=== PATIENT | male | born 1965 | race Caucasian/White ===

== ENCOUNTER 2022-03-22 20:54 | Inpatient (IN) ==
[2022-03-22 22:00] LABS: Basophils # (auto) 0.06 K/uL (0-0.2); Basophils % (auto) 0.3 %; Eosinophils # (auto) 0.02 K/uL (0-0.50); Eosinophils % (auto) 0.1 %; Hematocrit (blood only) 57.6 % (40.1-51.0); Hemoglobin 20.1 g/dl (14.0-18.0); Immature Granulocytes # (auto) 0.06 K/uL (0.00-0.02); Immature Granulocytes % (auto) 0.3 %; Lymphocytes # (auto) 2.38 K/uL (1.2-3.4); Lymphocytes % (auto) 11.5 %; Mean Corpuscular Hemoglobin 30.8 pg (25.0-34.0); Mean Corpuscular Hgb Conc 34.9 g/dL (32.0-36.0); Mean Corpuscular Volume 88.3 fL (80.0-100.0); Mean Platelet Volume 9.5 fL (9.4-12.4); Monocytes # (auto) 1.11 K/uL (0.24-0.82); Monocytes % (auto) 5.4 %; Neutrophils % (auto) 82.4 %; Platelet Count 315 K/uL (130-400); RDW Coefficient of Variation 12.8 % (11.5-14.5); Red Blood Count 6.52 M/uL (4.63-6.08); White Blood Count 20.63 K/ul (4.8-10.8)
[2022-03-22 22:17] LABS: Albumin Globulin Ratio 1.4 (0.9-2); Albumin Level 4.5 gm/dl (3.4-5.0); BUN Creatinine Ratio 24.4 (10-20); Bilirubin,Total 0.5 mg/dl (0.2-1.0); Calcium 9.3 mg/dl (8.5-10.1); Creatinine Clr Calc Pharmacy 90.5 ml/min; Est GFR (Non-African American) 94.9 ml/min; Globulin 3.3 gm/dl (2.5-4.0); Potassium 4.2 mmol/L (3.5-5.1); Total Protein 7.8 gm/dl (6.0-8.3)
[2022-03-22] MEDS ORDERED: SODIUM CHLORIDE 0.9% 1000ML 1,000 ML IV ONE (22:21)
--- NOTE | 2022-03-22 22:58 | Emergency Department Note ---
Impression & Plan Generalized abdominal pain, Leukocytosis, Elevated troponin, Abnormal ECG ED Provider Note INFORMANT: Patient ED PROVIDER(S): Shaq Stephens MD CHIEF COMPLAINT: Abdominal pain PLAN: Disposition: Admitted Condition: Good Outpatient prescription management: none Referral: None MEDICAL DECISION MAKING: Patient presented because of abdominal pain. He also had diarrhea. He was concerned with his history of perforation. He had no peritoneal findings on examination. His ECG was abnormal. He had a repolarization abnormality however when compared to prior there was worsening in the inferior leads. He was hydrated. Patient declined analgesia initially. He was sent for CT imaging. Patient was found to have a significant leukocytosis as well as elevated hemoglobin on CBC. Chemistry panel was unremarkable. Patient was found to have an elevated troponin. In light of his symptoms and abnormal ECG this was concerning. He was significantly hypertensive. The patient was given aspirin, Nitropaste, and a dose of IV Lopressor. CT imaging is consistent with diarrheal illness. It appears that the diarrheal illness may have triggered a cascade of events. Stool studies were ordered. Patient did note that he has been drinking from [place]. Further management in the hospital will be necessary. Consultation was made with the [facility] hospitalist service. Patient was evaluated and managed Triage Nursing notes reviewed and agree them. Vital Signs: reviewed and remarkable for hypertension Differential diagnosis: Appendicitis, testicular torsion, infections, diverticulitis, UTI, obstruction, mesenteric ischemia, aortic pathology, inflammatory bowel disease, renal colic, PUD, pancreatitis, biliary pathology, hernia, volvulus, constipation, as well as other pathologies. Diagnostics interpreted by me: ECG: Twelve-lead ECG reveals a normal sinus rhythm at 84 bpm. There is bilateral atrial margin. LVH present. Repolarization abnormality present. Inferior T wave inversions. When compared to his prior study obtained in the [employer] system the inferior changes are new. Cardiac Monitoring: Cardiac monitoring ordered by me: The patient was placed on continuous cardiac monitoring and observed. It revealed a normal sinus rhythm at 72 beats per minute without ectopy or evidence of dysrhythmia. Imaging studies: CT scan as noted above. HPI: The patient is a 57year old male who presents to the Emergency Room with complaints of generalized abdominal pain. This started yesterday and is worsening. The patient also notes the following associated symptoms, some mild diarrhea and transient nausea. The patient has found no relieving factors. C urrent pain is rated as 7/10. Patient has a history of bowel perforation. States does not feel as severe. Pt denies LOC, headache, fevers, chills, diaphoresis, visual changes, neck pain, chest pain, breathing difficulties, 5 back pain, melena, hematochezia, urinary symptoms, numbness, weakness, l ymphadenopathy, rash, or other complaints. ROS: See above HPI for pertinent positives & negatives. A total of 10 systems reviewed and were otherwise negative. PAST MEDICAL HISTORY:See Below , diverticulitis PAST SURGICAL HISTORY:See Below, colon resection FAMILY HISTORY:See Below SOCIAL HISTORY:See Below, HOME MEDICATIONS:See Below ALLERGIES:See Below VITALS:See Below PHYSICAL EXAMINATION: GENERAL: Awake, alert, uncomfortable-appearing, in no distress HENT: Normocephalic, atraumatic. Oropharynx unremarkable. EYES: Normal conjunctiva. Sclera non-icteric. NECK: Inspection normal. Non-tender. Supple. No nuchal rigidity. FROM. No masses. RESPIRATORY: Clear to auscultation. No wheezes. No rales. Normal respiratory effort. CARDIAC: Normal rate. Normal rhythm. No murmurs. No rubs. Extremities warm and well perfused. Pulses equal. No JVD. GI: Soft, non-distended. Mid tenderness to palpation. No rebound or guarding. No masses. RECTAL: Deferred. MUSCULOSKELETAL: Atraumatic. Chest examination reveals no tenderness. The back is symmetrical on inspection without obvious abnormality. There is no CVA tenderness to palpation. No joint edema. LOWER EXTREMITIES: Calves are equal size bilaterally and non-tender. No edema. No discoloration. NEURO: Normal sensorium. No sensory or motor deficits noted. SKIN: No rash or jaundice noted. Shaq Stephens MD Past Med/Surg History Social History Smoking Status: Never smoker Feels Safe at Home: Yes Allergies Allergies Allergy/AdvReac Type Severity Reaction Status Date / Time No Known Allergies Allergy Unverified 03/23/22 00:51 Home Meds Home Medications Medication Instructions Recorded Confirmed bismuth subsalicylate 262 mg/15 mL 524 mg PO QID PRN gi-upset 03/23/22 03/23/22 oral suspension (Pepto-Bismol) lisinopril 10 mg tablet 10 mg PO DAILY 03/23/22 03/23/22 Results & Data (ED) Vital Signs Vital Signs - 24 hr 03/22/22 21:06 03/22/22 21:55 03/22/22 23:00 Temperature 36.7 C Temperature Source Skin Pulse Rate 110 H Pulse Rate [Apical] 89 74 Pulse Rhythm [Apical] Regular Regular Pulse Strength [Apical] Normal Normal Respiratory Rate 20 20 16 Respiratory Effort / Characteristics Non-Labored Spontaneous Non-Labored Spontaneous Non-Labored Spontaneous Respiratory Depth Normal Normal Normal Respiratory Pattern Regular Blood Pressure 182/95 H Blood Pressure [Right Arm] 163/110 H Blood Pressure Mean 124 Blood Pressure Mean [Right Arm] 127 Blood Pressure Position [Right Arm] Lying Pulse Oximetry 97 95 98 Oxygen Delivery Method Room Air Room Air Room Air Sepsis Recent Fever Within 48 Hours No Sepsis New/Unexplained Change in Mental Status N/A Sepsis Action Taken by Nursing No Action Required 03/22/22 23:40 03/23/22 00:27 03/23/22 00:56 Temperature Temperature Source Pulse Rate Pulse Rate [Apical] 95 H 86 Pulse Rhythm [Apical] Regular Pulse Strength [Apical] Normal Respiratory Rate 16 16 Respiratory Effort / Characteristics Non-Labored Spontaneous Respiratory Depth Normal Respiratory Pattern Blood Pressure Blood Pressure [Right Arm] 171/109 H 162/103 H 151/96 H Blood Pressure Mean Blood Pressure Mean [Right Arm] 129 122 114 Blood Pressure Position [Right Arm] Lying Pulse Oximetry 96 96 Oxygen Delivery Method Room Air Room Air Sepsis Recent Fever Within 48 Hours Sepsis New/Unexplained Change in Mental Status Sepsis Action Taken by Nursing 03/23/22 01:26 Temperature Temperature Source Pulse Rate Pulse Rate [Apical] 72 Pulse Rhythm [Apical] Regular Pulse Strength [Apical] Normal Respiratory Rate 16 Respiratory Effort / Characteristics Non-Labored Respiratory Depth Normal Respiratory Pattern Blood Pressure Blood Pressure [Right Arm] 153/100 H Blood Pressure Mean Blood Pressure Mean [Right Arm] 117 Blood Pressure Position [Right Arm] Pulse Oximetry 96 Oxygen Delivery Method Room Air Sepsis Recent Fever Within 48 Hours Sepsis New/Unexplained Change in Mental Status Sepsis Action Taken by Nursing Laboratory Data Result diagrams: 03/22/22 21:31 03/22/22 21:31 Lab Results 03/22/22 03/22/22 03/22/22 Range/Units 21:31 21:31 22:47 WBC 20.63 H (4.8-10.8) K/ul RBC 6.52 H (4.63-6.08) M/uL Hgb 20.1 H (14.0-18.0) g/dl Hct 57.6 H (40.1-51.0) % MCV 88.3 (80.0-100.0) fL MCH 30.8 (25.0-34.0) pg MCHC 34.9 (32.0-36.0) g/dL RDW Std Deviation 41.0 (36.4-46.3) fL RDW Coeff of Jc 12.8 (11.5-14.5) % Plt Count 315 (130-400) K/uL MPV 9.5 (9.4-12.4) fL Immature Gran % (Auto) 0.3 % Neut % (Auto) 82.4 % Lymph % (Auto) 11.5 % Harvey % (Auto) 5.4 % Eos % (Auto) 0.1 % Baso % (Auto) 0.3 % Neut # (Auto) 17.00 H (1.4-6.5) K/uL Lymph # (Auto) 2.38 (1.2-3.4) K/uL Harvey # (Auto) 1.11 H (0.24-0.82) K/uL Eos # (Auto) 0.02 (0-0.50) K/uL Baso # (Auto) 0.06 (0-0.2) K/uL Immature Gran # (Auto) 0.06 H (0.00-0.02) K/uL Sodium 133 L (136-145) mmol/L Potassium 4.2 (3.5-5.1) mmol/L Chloride 99 (98-107) mmol/L Carbon Dioxide 26 (21-32) mmol/L Anion Gap 8 (3-11) BUN 21 (6-23) mg/dl Creatinine 0.86 (0.6-1.4) mg/dl Est Cr Clr Drug Dosing 90.5 ml/min Est GFR ( Amer) 110.0 ml/min Est GFR (Non-Af Amer) 94.9 ml/min BUN/Creatinine Ratio 24.4 H (10-20) Glucose 134 H (70-99(Fasting)) mg/dl Calcium 9.3 (8.5-10.1) mg/dl Total Bilirubin 0.5 (0.2-1.0) mg/dl AST 23 (13-39) U/L ALT 24 (7-52) U/L Alkaline Phosphatase 108 H (34-104) U/L Troponin I High Sens 35.6 H (0-20) pg/ml Total Protein 7.8 (6.0-8.3) gm/dl Albumin 4.5 (3.4-5.0) gm/dl Globulin 3.3 (2.5-4.0) gm/dl Albumin/Globulin Ratio 1.4 (0.9-2) Lipase 59 (11-82) U/L SARS-CoV-2, RNA, NAAT (NEGATIVE) 03/23/22 Range/Units 00:35 WBC (4.8-10.8) K/ul RBC (4.63-6.08) M/uL Hgb (14.0-18.0) g/dl Hct (40.1-51.0) % MCV (80.0-100.0) fL MCH (25.0-34.0) pg MCHC (32.0-36.0) g/dL RDW Std Deviation (36.4-46.3) fL RDW Coeff of Cj (11.5-14.5) % Plt Count (130-400) K/uL MPV (9.4-12.4) fL Immature Gran % (Auto) % Neut % (Auto) % Lymph % (Auto) % Harvey % (Auto) % Eos % (Auto) % Baso % (Auto) % Neut # (Auto) (1.4-6.5) K/uL Lymph # (Auto) (1.2-3.4) K/uL Harvey # (Auto) (0.24-0.82) K/uL Eos # (Auto) (0-0.50) K/uL Baso # (Auto) (0-0.2) K/uL Immature Gran # (Auto) (0.00-0.02) K/uL Sodium (136-145) mmol/L Potassium (3.5-5.1) mmol/L Chloride (98-107) mmol/L Carbon Dioxide (21-32) mmol/L Anion Gap (3-11) BUN (6-23) mg/dl Creatinine (0.6-1.4) mg/dl Est Cr Clr Drug Dosing ml/min Est GFR ( Amer) ml/min Est GFR (Non-Af Amer) ml/min BUN/Creatinine Ratio (10-20) Glucose (70-99(Fasting)) mg/dl Calcium (8.5-10.1) mg/dl Total Bilirubin (0.2-1.0) mg/dl AST (13-39) U/L ALT (7-52) U/L Alkaline Phosphatase (34-104) U/L Troponin I High Sens (0-20) pg/ml Total Protein (6.0-8.3) gm/dl Albumin (3.4-5.0) gm/dl Globulin (2.5-4.0) gm/dl Albumin/Globulin Ratio (0.9-2) Lipase (11-82) U/L SARS-CoV-2, RNA, NAAT NEGATIVE (NEGATIVE) Administered Medications Discontinued Medications Aspirin (Aspirin Chew 324 Mg) 324 mg PO NOW STA Stop: 03/23/22 00:08 Last Admin: 03/23/22 00:27 Dose: 324 mg Documented By: MANDI Sodium Chloride (Nss 1000ml) 1,000 mls @ 999 mls/hr IV .Q1H1M ONE Stop: 03/22/22 23:21 Last Infusion: 03/22/22 23:45 Dose: 0 mls/hr Documented By: Admin: 03/22/22 22:31 Dose: 999 mls/hr Documented By: TONY Sodium Chloride (Nss 1000ml) 1,000 mls @ 125 mls/hr IV .Q8H STA Stop: 03/23/22 07:52 Last Admin: 03/23/22 00:33 Dose: 125 mls/hr Documented By: MANDI Metoprolol Tartrate (Metoprolol Tartrate 1 Mg/Ml Vial) 2.5 mg IV NOW STA Stop: 03/23/22 00:09 Last Admin: 03/23/22 00:27 Dose: 2.5 mg Documented By: MANDI Nitroglycerin (Nitroglycerin 2% Ointment 30gm Tube) 0.5 inch EXT NOW STA Stop: 03/23/22 00:08 Last Admin: 03/23/22 00:27 Dose: 0.5 inch Documented By: MANDI Discharge Plan Visit Data Chief Complaint: Abdominal Pain Stated Complaint: ABD PAIN, LOWER BOWEL REMOVED 7 YEARS AGO ED Provider: Shaq Stephens Discharge Problem: Generalized abdominal pain, Leukocytosis, Elevated troponin, Abnormal ECG Forms Stand Alone Forms: My [facility] [employer] [facility] Prescriptions Prescriptions: No Action bismuth subsalicylate [Pepto-Bismol] 262 mg/15 mL Suspension 524 mg PO QID PRN (Reason: gi-upset) lisinopril 10 mg tablet 10 mg PO DAILY Referrals Referrals: PCP,NO [Primary Care Provider] -
[2022-03-22] MEDS ORDERED: SODIUM CHLORIDE 0.9% 1000ML 1,000 ML IV STA (23:53)
[2022-03-23] MEDS ORDERED: NITROGLYCERIN 2% OINTMENT 30GM TUBE EXT STA (00:07)
[2022-03-23] MEDS ORDERED: ASPIRIN CHEW 324 MG PO STA (00:07)
[2022-03-23] MEDS ORDERED: METOPROLOL TARTRATE 1 MG/ML VIAL IV STA (00:08)
[2022-03-23 02:50] LABS: Adenovirus F 40/41 PCR Not Detected (NotDetected); Astrovirus PCR Not Detected (NotDetected); Campylobacter PCR Not Detected (NotDetected); Cryptosporidium PCR Not Detected (NotDetected); Cyclospora cayetanensis PCR Not Detected (NotDetected); Entamoeba histolytica PCR Not Detected (NotDetected); Enteroaggregative E.coli(EAEC) Not Detected (NotDetected); Enteropathogenic E.coli (EPEC) Not Detected (NotDetected); Enterotoxigenic E.coli (ETEC) Not Detected (NotDetected); Giardia lamblia PCR Not Detected (NotDetected); Norovirus GI/GII PCR Not Detected (NotDetected); Plesiomonas shigelloides PCR Not Detected (NotDetected); Rotavirus A PCR Not Detected (NotDetected); Salmonella PCR Not Detected (NotDetected); Sapovirus PCR Not Detected (NotDetected); Shiga-like Toxin E.coli (STEC) Not Detected (NotDetected); Shigella/Enteroinvasive E.coli Not Detected (NotDetected); Vibrio cholerae PCR Not Detected (NotDetected); Vibrio species PCR Not Detected (NotDetected); Yersinia enterocolitica PCR Not Detected (NotDetected)
[2022-03-23 04:17] LABS: Cdiff Antigen Negative; Cdiff Toxin A+B Negative Cdiff Toxin (Negative)
[2022-03-23] MEDS ORDERED: MoRPHine SULFATE 4 MG/ML 1 ML CARP\\VIAL IV PRN (04:17)
[2022-03-23] MEDS ORDERED: ONDANSETRON INJ 2 MG/ML 2 ML VIAL IV PRN (04:17)
[2022-03-23] MEDS ORDERED: ACETAMINOPHEN 325 MG TAB PO PRN (04:17)
[2022-03-23] MEDS ORDERED: NITROGLYCERIN SL 0.4 MG/TAB TAB SL PRN (04:17)
--- NOTE | 2022-03-23 04:59 | History and Physical Report ---
DATE OF ADMISSION: 03/23/2022. CHIEF COMPLAINT: Abdominal pain, diarrhea. HISTORY OF PRESENT ILLNESS: This is a 57-year-old male with past medical history significant for hyperlipidemia, prediabetes, hypertension, presents with abdominal pain. The patient about 6-7years ago had diverticulitis and had bowel surgery at that time. He thought the pain could be from the diverticulitis. He also had daily three episodes of diarrhea. The pain started since morning. Recently he was also camping and drinking water from the spring water. States his brother also with similar symptoms. Has chills, no fever, some nausea, no vomiting. Stool is dark color. Normal bladder movements. No chest pain, no shortness of breath, no headache, no blurred visions, no earache, no runny nose, no sore throat, no cough, no difficulty swallowing. Appetite is down since the last few days. Currently resting comfortably and hemodynamically stable. ALLERGIES: No known drug allergies. PAST MEDICAL HISTORY: As mentioned above. PAST SURGICAL HISTORY: Knee arthroscopy, colonoscopy, dental surgery, exploratory laparotomy, repair of left inguinal hernia, right shoulder arthroscopy. MEDICATIONS: The patient is on lisinopril 10 mg p.o. daily, Pepto-Bismol p.r.n. FAMILY HISTORY: Significant for father had colon cancer; maternal grandfather had cancer, Paternal grandfather, cancer. SOCIAL HISTORY: , no smoking. Alcohol on weekends. No drug use. REVIEW OF SYSTEMS: As per HPI. Rest of the review of systems is negative. PHYSICAL EXAMINATION: GENERAL: The patient is of moderate build, not in acute distress. VITAL SIGNS: Temperature 36.7, pulse 72, respiratory rate 16, blood pressure 153/100, oxygen 96% on room air. HEENT: Pupils equal, round and reactive to light. Oral mucosa dry. NECK: No JVD, no neck masses. CARDIOVASCULAR: S1 and S2 heard. Murmur in mitral region. Regular rate and rhythm. RESPIRATORY SYSTEM: Normal AP diameter. No accessory muscle use. No wheezing, no crackles. ABDOMEN: Soft, bowel sounds present. Mild discomfort. No guarding. No rigidity. CENTRAL NERVOUS SYSTEM: Cranial nerves II-XII grossly intact, nonfocal. EXTREMITIES: No edema, no erythema. LABORATORY DATA: WBC 20, hemoglobin 20.1, hematocrit 57.6, platelets 315. Sodium 133, potassium 4.2, chloride 99, bicarb 26, BUN 21, creatinine 0.8, serum glucose 134, calcium 9.3, total bilirubin 0.5, AST 23, ALT 24, alkaline phosphatase 108. Troponin I high sensitivity 35.6. Stool studies pending. SARS-CoV-2 rapid test negative. IMAGING DATA: CT abdomen and pelvis without contrast, fluid throughout the colon consistent with diarrheal illness. The gallbladder is unremarkable. Common bile duct is normal. No evidence of pancreatitis. No evidence of hydronephrosis or renal calculi. The appendix is normal. Fat-containing umbilical hernia. ASSESSMENT AND PLAN: This is a 57-year-old male who presents with abdominal pain, diarrhea. 1. Abdominal pain, diarrhea: Ongoing since last . CAT scan showing diarrheal illness. We will follow the final report. We will follow the stool studies. He was also drinking water, spring water at the camp. Also having leukocytosis, but for now, we will continue with IV fluids, clear liquid diet and monitor. 2. Elevated troponin: No chest pain. Follow serial enzymes. Echocardiogram, as the patient also has a history of ventral septal defect, has murmur. 3. Hypertension. On lisinopril with holding parameters. 4. Hyperlipidemia: Not on any medications. 5. Deep venous thrombosis prophylaxis: Lovenox. Addendum: Arpit studies showed c diff gene positive but toxin negative. But because of symptoms and leukocytosis started on po vancomycin DISPOSITION: Closely monitor in the med tele. PT/OT prior to discharge. Social service to help with discharge planning. Job ID: [id number] [facility]
[2022-03-23] MEDS: D5W AND 1/2NSS 1,000 ML IV SCH ×3 (05:26→21:49)
--- NOTE | 2022-03-23 06:45 | CT Scan Report ---
CT SCAN OF THE ABDOMEN AND PELVIS WITHOUT IV CONTRAST CLINICAL HISTORY: Generalized abdominal pain. Leukocytosis. Diarrhea. COMPARISON STUDY: No priors. TECHNIQUE: CT scan of the abdomen and pelvis is performed from the lung bases to the proximal femora. Images are reviewed in the axial, sagittal, and coronal planes. IV contrast was not administered for this examination. Note that the examination is suboptimal without oral and IV contrast. A dose lower ing technique was utilized adhering to the principles of ALARA. CT DOSE: 314.99 mGy.cm FINDINGS: Lung bases: The heart is normal in size and without pericardial effusion. There are coronary artery c alcifications. The lung bases are clear noting dependent scarring/atelectasis. Liver: The unenhanced liver is normal in size, contour, and attenuation. There is no intrahepatic cony iary ductal dilatation. Gallbladder: Unremarkable. Spleen: Normal in size and attenuation. Pancreas: Unremarkable. Adrenal glands: Unremarkable. Kidneys: The unenhanced kidneys are normal in size and without hydronephrosis. There is a 2 mm nonobs tructing right renal calculus. No left renal calculi are identified. There is no evidence of contour deforming renal mass lesion. Abdominal vasculature: The abdominal aorta is normal in course and caliber noting moderate to advance d atherosclerotic calcification. Bowel: There is postoperative change from sigmoid colon resection with colocolonic anastomosis. Liqui d stool is seen throughout the colon. There are also mildly distended and fluid-filled loops of small bowel. No high-grade obstruction is seen. There are thick-walled loops of small bowel in the left up per quadrant with mild surrounding infiltration. There is mild diverticulosis of the remaining left c olon without CT evidence of acute diverticulitis. The appendix is well-visualized and normal. Peritoneum: There is no intraperitoneal free air or abdominal ascites. There is a fat-containing umbi lical hernia. Lymphadenopathy: None. Pelvic viscera: The prostate gland is enlarged and heterogeneous noting median lobe hypertrophy. The bladder wall appears mildly thickened and trabeculated suggesting chronic outlet obstruction. There i s fluid or possibly the right testis located in the right inguinal canal on image #[id number]. Skeletal structures: The skeletal structures appear osteopenic. There is moderate lumbosacral spondyl osis. No lytic or blastic lesions are seen. IMPRESSION: 1. There are mildly distended and fluid-filled loops of small bowel, as well as liquid stool seen thr oughout the colon. Additionally, there are mildly thick-walled loops of small bowel in the left upper quadrant with surrounding infiltration. The appearance suggests a nonspecific enterocolitis/diarrhea l illness. Clinical correlation will be required. 2. There is no evidence of high-grade bowel obstruction. No intraperitoneal free air is identified. 3. Right-sided nephrolithiasis. 4. There is fluid versus the right testis identified in the right inguinal canal. Clinical correlatio n will be required. 5. Additional findings as above. ACT 112: Negative or not required by law. Electronically signed by: Eren Fallon M.D. 03/23/2022 6:43 AM
[2022-03-23] MEDS ORDERED: VANCOMYCIN HCL 250 MG/5 ML SOLN PO STA (06:50)
[2022-03-23] MEDS ORDERED: RASPBERRY SYRUP 5 ML UDP PO STA (06:50)
[2022-03-23 07:57] LABS: Basophils # (auto) 0.06 K/uL (0-0.2); Basophils % (auto) 0.3 %; Eosinophils # (auto) 0.01 K/uL (0-0.50); Hemoglobin 18.1 g/dl (14.0-18.0); Immature Granulocytes % (auto) 0.5 %; Lymphocytes % (auto) 9.6 %; Mean Corpuscular Hemoglobin 30.1 pg (25.0-34.0); Mean Corpuscular Hgb Conc 34.2 g/dL (32.0-36.0); Monocytes # (auto) 1.33 K/uL (0.24-0.82); Monocytes % (auto) 6.1 %; Neutrophils # (auto) 18.19 K/uL (1.4-6.5); Neutrophils % (auto) 83.5 %; Platelet Count 306 K/uL (130-400); RDW Coefficient of Variation 12.7 % (11.5-14.5); RDW Standard Deviation 41.1 fL (36.4-46.3); Red Blood Count 6.02 M/uL (4.63-6.08); White Blood Count 21.79 K/ul (4.8-10.8)
[2022-03-23 08:22] LABS: Troponin I High Sensitivity 33.7 pg/ml (0-20)
[2022-03-23] MEDS: lisinopril 10 MG TAB PO SCH (08:30)
[2022-03-23 08:32] LABS: BUN Creatinine Ratio 30.4 (10-20); Calcium 8.2 mg/dl (8.5-10.1); Creatinine Clr Calc Pharmacy 115.3 ml/min; Est GFR (African American) 120.4 ml/min; Est GFR (Non-African American) 103.9 ml/min; Magnesium 1.6 mg/dl (1.7-2.4); Potassium 3.5 mmol/L (3.5-5.1)
[2022-03-23] MEDS: ENOXAPARIN INJ 40 MG/0.4 ML SYR SQ SCH (09:49)
[2022-03-23 10:38] LABS: Estimated Average Glucose 128 mg/dl; Hemoglobin A1C 6.1 % (4.5-5.6)
[2022-03-23] MEDS: RASPBERRY SYRUP 5 ML UDP PO SCH ×3 (13:13→23:29)
[2022-03-23] MEDS: VANCOMYCIN HCL 250 MG/5 ML SOLN PO SCH ×3 (13:13→23:29)
--- NOTE | 2022-03-23 14:18 | Hospitalist Progress Note ---
Date of Service March 23, 2022 Assessment & Plan (1) Enterocolitis: (2) Leukocytosis: (3) Elevated troponin: Plan 57 year old male who presented to the ED 03/22 with diarrhea and abdominal pain CT A/P 03/22 1. There are mildly distended and fluid-filled loops of small bowel, as well as liquid stool seen throughout the colon. Additionally, there are mildly thick- walled loops of small bowel in the left upper quadrant with surrounding infiltration. The appearance suggests a nonspecific enterocolitis/diarrheal illness. Clinical correlation will be required. 2. There is no evidence of high-grade bowel obstruction. No intraperitoneal free air is identified. 3. Right-sided nephrolithiasis. 4. There is fluid versus the right testis identified in the right inguinal canal. Clinical correlation will be required. Enterocolitis- CT with enterocolitis but no obstruction. Stool biofire negative except for C diff gene but no toxin. Enterocolitis ?viral vs from C diff. Empiric vanco was started on admission, will continue for now - Continue symptomatic care. IVF. Tolerating clears- advance to full liquid- Advance further as tolerated Leucocytosis- likely from above. Stable. Recheck in am. Hyponatremia- mild, Na 133 stable. On IVF, Recheck in am HTN- on lisinopril Elevated trop- no CP. serial trop minimally elevated but flat trend. No need for further trending DVT ppx- sc lovenox Dispo- Pending symptomatic improvement. Monitoring labs. Admission and Anticipated Discharge Date Admission Date: March 23, 2022 Subjective Feels somewhat better. Tolerated clears without issues. No N/V. No abd pain. Still with diarrhea but no blood. No fever or chills. States his friends who were with him hunting- none of them are sick. Physical Exam Physical Exam: General: Lying comfortably in bed, not in distress, on room air HEENT: EOMI, LEIGH ANN, MMM Chest: Clear breath sounds bilaterally, no wheezes or crackles CVS: Regular rate and rhythm, normal heart sounds, no murmur Abdomen: Soft, non tender, not distended, normal bowel sounds Neuro: Awake, alert, oriented, conversing well, non focal Extremities: No cyanosis, clubbing or edema Results & Data Results & Data ([facility]) Vital Signs (Past 12 Hours) Vital Signs Temp Pulse Pulse Pulse Resp BP Pulse Ox 03/23/22 11:12 36.7 C 97 H 20 157/92 H 97 03/23/22 08:07 36.9 C 94 H 18 147/94 H 95 03/23/22 04:35 98 H 03/23/22 04:10 36.9 C 93 H 18 145/93 H 96 03/23/22 04:06 36.9 C 93 H 18 145/93 H 96 03/23/22 03:00 94 H 16 96 O2 Del Method 03/23/22 11:12 03/23/22 08:07 03/23/22 04:35 03/23/22 04:10 Room Air 03/23/22 04:06 Room Air 03/23/22 03:00 Room Air Laboratory Results Short CBC 03/22/22 03/23/22 Range/Units 21:31 07:02 WBC 20.63 H 21.79 H (4.8-10.8) K/ul Hgb 20.1 H 18.1 H (14.0-18.0) g/dl Hct 57.6 H 53.0 H (40.1-51.0) % Plt Count 315 306 (130-400) K/uL BMP 03/22/22 03/23/22 21:31 07:02 Sodium 133 L 133 L Potassium 4.2 3.5 Chloride 99 98 Carbon Dioxide 26 24 BUN 21 21 Creatinine 0.86 0.69 Glucose 134 H 157 H Calcium 9.3 8.2 L Liver Function 03/22/22 Range/Units 21:31 Total Bilirubin 0.5 (0.2-1.0) mg/dl AST 23 (13-39) U/L ALT 24 (7-52) U/L Alkaline Phosphatase 108 H (34-104) U/L Albumin 4.5 (3.4-5.0) gm/dl Diagnostic Findings Abdomen/Pelvis CT 03/22/22 22:21 CT SCAN OF THE ABDOMEN AND PELVIS WITHOUT IV CONTRAST CLINICAL HISTORY: Generalized abdominal pain. Leukocytosis. Diarrhea. COMPARISON STUDY: No priors. TECHNIQUE: CT scan of the abdomen and pelvis is performed from the lung bases to the proximal femora. Images are reviewed in the axial, sagittal, and coronal planes. IV contrast was not administered for this examination. Note that the examination is suboptimal without oral and IV contrast. A dose lowering technique was utilized adhering to the principles of ALARA. CT DOSE: 314.99 mGy.cm FINDINGS: Lung bases: The heart is normal in size and without pericardial effusion. There are coronary artery calcifications. The lung bases are clear noting dependent scarring/atelectasis. Liver: The unenhanced liver is normal in size, contour, and attenuation. There is no intrahepatic biliary ductal dilatation. Gallbladder: Unremarkable. Spleen: Normal in size and attenuation. Pancreas: Unremarkable. Adrenal glands: Unremarkable. Kidneys: The unenhanced kidneys are normal in size and without hydronephrosis. There is a 2 mm nonobstructing right renal calculus. No left renal calculi are identified. There is no evidence of contour deforming renal mass lesion. Abdominal vasculature: The abdominal aorta is normal in course and caliber noting moderate to advanced atherosclerotic calcification. Bowel: There is postoperative change from sigmoid colon resection with colocolonic anastomosis. Liquid stool is seen throughout the colon. There are also mildly distended and fluid-filled loops of small bowel. No high-grade obstruction is seen. There are thick-walled loops of small bowel in the left upper quadrant with mild surrounding infiltration. There is mild diverticulosis of the remaining left colon without CT evidence of acute diverticulitis. The appendix is well-visualized and normal. Peritoneum: There is no intraperitoneal free air or abdominal ascites. There is a fat-containing umbilical hernia. Lymphadenopathy: None. Pelvic viscera: The prostate gland is enlarged and heterogeneous noting median lobe hypertrophy. The bladder wall appears mildly thickened and trabeculated suggesting chronic outlet obstruction. There is fluid or possibly the right testis located in the right inguinal canal on image #[id number]. Skeletal structures: The skeletal structures appear osteopenic. There is moderate lumbosacral spondylosis. No lytic or blastic lesions are seen. IMPRESSION: 1. There are mildly distended and fluid-filled loops of small bowel, as well as liquid stool seen throughout the colon. Additionally, there are mildly thick- walled loops of small bowel in the left upper quadrant with surrounding infiltration. The appearance suggests a nonspecific enterocolitis/diarrheal illness. Clinical correlation will be required. 2. There is no evidence of high-grade bowel obstruction. No intraperitoneal free air is identified. 3. Right-sided nephrolithiasis. 4. There is fluid versus the right testis identified in the right inguinal canal. Clinical correlation will be required. 5. Additional findings as above. ACT 112: Negative or not required by law. Electronically signed by: Eren Fallon M.D. 03/23/2022 6:43 AM Medications Administered Current Inpatient Medications Acetaminophen (Acetaminophen 325 Mg Tab) 650 mg PO Q4H PRN PRN Reason: Pain or Fever Stop: 04/22/22 04:16 Enoxaparin Sodium (Enoxaparin Inj 40 Mg/0.4 Ml Syr) 40 mg SQ Q24H ISABEL Stop: 04/22/22 08:59 Last Admin: 03/23/22 09:49 Dose: Not Given Dextrose/Sodium Chloride (D5w And 1/2nss) 1,000 mls @ 125 mls/hr IV .Q8H ISABEL Stop: 04/22/22 04:16 Last Admin: 03/23/22 13:14 Dose: 125 mls/hr Lisinopril (Lisinopril 10 Mg Tab) 10 mg PO DAILY ISABEL Stop: 04/22/22 08:59 Last Admin: 03/23/22 08:30 Dose: 10 mg Morphine Sulfate (Morphine Sulfate 4 Mg/Ml 1 Ml Carp\Vial) 3 mg IV Q4H PRN PRN Reason: Pain Stop: 04/06/22 04:16 Nitroglycerin (Nitroglycerin Sl 0.4 Mg/Tab Tab) 0.4 mg SL UD PRN PRN Reason: Chest Pain Stop: 04/22/22 04:16 Ondansetron HCl (Ondansetron Inj 2 Mg/Ml 2 Ml Vial) 4 mg IV Q6H PRN PRN Reason: Nausea Stop: 04/22/22 04:16 Raspberry (Raspberry Syrup 5 Ml Udp) 5 ml PO Q6 ISABEL Stop: 04/02/22 11:59 Last Admin: 03/23/22 13:13 Dose: 5 ml Vancomycin HCl (Vancomycin Hcl 250 Mg/5 Ml Soln) 250 mg PO Q6 ISABEL Stop: 04/02/22 11:59 Last Admin: 03/23/22 13:13 Dose: 250 mg
[2022-03-23] MEDS: ZOLPIDEM TARTRATE 5 MG TAB PO PRN (23:29)
[2022-03-24] MEDS ORDERED: Nursing to Pharmacy Communication SCH (04:15)
[2022-03-24] MEDS: RASPBERRY SYRUP 5 ML UDP PO SCH ×3 (05:47→18:25)
[2022-03-24] MEDS: VANCOMYCIN HCL 250 MG/5 ML SOLN PO SCH ×3 (05:47→18:26)
[2022-03-24] MEDS: D5W AND 1/2NSS 1,000 ML IV SCH (05:49)
[2022-03-24] MEDS: ENOXAPARIN INJ 40 MG/0.4 ML SYR SQ SCH (08:18)
[2022-03-24] MEDS: lisinopril 10 MG TAB PO SCH (08:18)
[2022-03-24 09:18] LABS: Basophils # (auto) 0.06 K/uL (0-0.2); Basophils % (auto) 0.3 %; Eosinophils # (auto) 0.01 K/uL (0-0.50); Hematocrit (blood only) 55.5 % (40.1-51.0); Hemoglobin 18.4 g/dl (14.0-18.0); Immature Granulocytes # (auto) 0.11 K/uL (0.00-0.02); Immature Granulocytes % (auto) 0.5 %; Lymphocytes # (auto) 1.92 K/uL (1.2-3.4); Lymphocytes % (auto) 8.3 %; Mean Corpuscular Hemoglobin 30.1 pg (25.0-34.0); Mean Corpuscular Hgb Conc 33.2 g/dL (32.0-36.0); Mean Corpuscular Volume 90.8 fL (80.0-100.0); Monocytes # (auto) 1.86 K/uL (0.24-0.82); Neutrophils # (auto) 19.27 K/uL (1.4-6.5); Neutrophils % (auto) 82.9 %; Platelet Count 295 K/uL (130-400); RDW Coefficient of Variation 12.6 % (11.5-14.5); RDW Standard Deviation 41.7 fL (36.4-46.3); Red Blood Count 6.11 M/uL (4.63-6.08); White Blood Count 23.23 K/ul (4.8-10.8)
[2022-03-24 09:44] LABS: BUN Creatinine Ratio 18.8 (10-20); Calcium 7.5 mg/dl (8.5-10.1); Creatinine Clr Calc Pharmacy 124.3 ml/min; Est GFR (African American) 124.2 ml/min; Est GFR (Non-African American) 107.2 ml/min; Magnesium 1.5 mg/dl (1.7-2.4); Phosphorus 2.5 mg/dl (2.5-4.9); Potassium 3.5 mmol/L (3.5-5.1)
[2022-03-24] MEDS ORDERED: MAGNESIUM SULFATE / D5W 1 GM/100 ML BAG IV STA (09:51)
--- NOTE | 2022-03-24 11:15 | Electrocardiogram Report ---
Test Reason : Blood Pressure : / mmHG Vent. Rate : 084 BPM Atrial Rate : 084 BPM P-R Int : 118 ms QRS Dur : 098 ms QT Int : 384 ms P-R-T Axes : 079 062 210 degrees QTc Int : 453 ms Normal sinus rhythm Biatrial enlargement Left ventricular hypertrophy with repolarization abnormality Diffuse ST depression and T wave inversions consider inferior and anterolateral ischemia Abnormal ECG No previous ECGs available Confirmed by Colin Alegria ([id number]) on 03/24/2022 11:14:34 AM Referred By: REFERRED SELF Confirmed By:Colin Alegria
--- NOTE | 2022-03-24 11:27 | Hospitalist Progress Note ---
Date of Service March 24, 2022 Assessment & Plan (1) Enterocolitis: (2) Leukocytosis: (3) Elevated troponin: Plan 57 year old male who presented to the ED 03/22 with diarrhea and abdominal pain CT A/P 03/22 1. There are mildly distended and fluid-filled loops of small bowel, as well as liquid stool seen throughout the colon. Additionally, there are mildly thick- walled loops of small bowel in the left upper quadrant with surrounding infiltration. The appearance suggests a nonspecific enterocolitis/diarrheal illness. Clinical correlation will be required. 2. There is no evidence of high-grade bowel obstruction. No intraperitoneal free air is identified. 3. Right-sided nephrolithiasis. 4. There is fluid versus the right testis identified in the right inguinal canal. Clinical correlation will be required. Enterocolitis- CT with enterocolitis but no obstruction. Stool biofire negative except for C diff gene but no toxin. Enterocolitis ?viral vs from C diff. Empiric vanco was started on admission, will continue for now - Continue symptomatic management, IVF, advance diet to regular today. If not improving, consider GI evaluation. Leucocytosis- unclear cause ?from above. overall stable. Recheck in am. Hyponatremia- mild, Na 133->131. Change ivf to NSS. Should improve with oral intake. Recheck in am HTN- on lisinopril Elevated trop- no CP. serial trop minimally elevated but flat trend. No need for further trending Hypomagnesemia- repleted, recheck in am DVT ppx- sc lovenox Dispo- Anticipate discharge in 1-2 days if continues to improve symptomatically and leucocytosis trends down Admission and Anticipated Discharge Date Admission Date: March 23, 2022 Subjective Feeling better but still having intermittent sweats. Tolerating full liquid diet. No pain. No fever noted since admission. Agreeable to advance to regular diet. Physical Exam Physical Exam: General: Lying comfortably in bed, not in distress, on room air HEENT: EOMI, LEIGH ANN, MMM Chest: Clear breath sounds bilaterally, no wheezes or crackles CVS: Regular rate and rhythm, normal heart sounds, no murmur Abdomen: Soft, non tender, not distended, normal bowel sounds Neuro: Awake, alert, oriented, conversing well, non focal Extremities: No cyanosis, clubbing or edema Results & Data Results & Data ([place]) Vital Signs (Past 12 Hours) Vital Signs Temp Pulse Pulse Resp BP BP Pulse Ox 03/24/22 11:17 36.7 C 107 H 16 134/89 97 03/24/22 07:58 37.0 C 107 H 18 161/89 H 96 03/24/22 04:05 36.5 C 108 H 18 145/101 H 95 03/24/22 00:10 180/100 H 03/24/22 01:14 107 H O2 Del Method 03/24/22 11:17 Room Air 03/24/22 07:58 Room Air 03/24/22 04:05 Room Air 03/24/22 00:10 03/24/22 01:14 Laboratory Results Short CBC 03/24/22 Range/Units 08:48 WBC 23.23 H (4.8-10.8) K/ul Hgb 18.4 H (14.0-18.0) g/dl Hct 55.5 H (40.1-51.0) % Plt Count 295 (130-400) K/uL BMP 03/24/22 08:48 Sodium 131 L Potassium 3.5 Chloride 99 Carbon Dioxide 26 BUN 12 Creatinine 0.64 Glucose 175 H Calcium 7.5 L Medications Administered Current Inpatient Medications Acetaminophen (Acetaminophen 325 Mg Tab) 650 mg PO Q4H PRN PRN Reason: Pain or Fever Stop: 04/22/22 04:16 Enoxaparin Sodium (Enoxaparin Inj 40 Mg/0.4 Ml Syr) 40 mg SQ Q24H ISABEL Stop: 04/22/22 08:59 Last Admin: 03/24/22 08:18 Dose: Not Given Sodium Chloride (Nss 1000ml) 1,000 mls @ 80 mls/hr IV .[id number] ISABEL Stop: 04/23/22 11:29 Lisinopril (Lisinopril 10 Mg Tab) 10 mg PO DAILY ISABEL Stop: 04/22/22 08:59 Last Admin: 03/24/22 08:18 Dose: 10 mg Morphine Sulfate (Morphine Sulfate 4 Mg/Ml 1 Ml Carp\Vial) 3 mg IV Q4H PRN PRN Reason: Pain Stop: 04/06/22 04:16 Nitroglycerin (Nitroglycerin Sl 0.4 Mg/Tab Tab) 0.4 mg SL UD PRN PRN Reason: Chest Pain Stop: 04/22/22 04:16 Ondansetron HCl (Ondansetron Inj 2 Mg/Ml 2 Ml Vial) 4 mg IV Q6H PRN PRN Reason: Nausea Stop: 04/22/22 04:16 Raspberry (Raspberry Syrup 5 Ml Udp) 5 ml PO Q6 ISABEL Stop: 04/02/22 11:59 Last Admin: 03/24/22 05:47 Dose: 5 ml Vancomycin HCl (Vancomycin Hcl 250 Mg/5 Ml Soln) 250 mg PO Q6 ISAEBL Stop: 04/02/22 11:59 Last Admin: 03/24/22 05:47 Dose: 250 mg Zolpidem Tartrate (Zolpidem Tartrate 5 Mg Tab) 5 mg PO HS PRN PRN Reason: Sleep Stop: 04/22/22 21:41 Last Admin: 03/23/22 23:29 Dose: 5 mg
[2022-03-24] MEDS: SODIUM CHLORIDE 0.9% 1000ML 1,000 ML IV SCH (12:39)
[2022-03-24] MEDS: ZOLPIDEM TARTRATE 5 MG TAB PO PRN (21:58)
[2022-03-25] MEDS: SODIUM CHLORIDE 0.9% 1000ML 1,000 ML IV SCH ×2 (00:54→12:24)
[2022-03-25] MEDS: RASPBERRY SYRUP 5 ML UDP PO SCH ×3 (00:55→12:14)
[2022-03-25] MEDS: VANCOMYCIN HCL 250 MG/5 ML SOLN PO SCH ×3 (00:55→12:14)
[2022-03-25 06:04] LABS: Basophils # (auto) 0.05 K/uL (0-0.2); Basophils % (auto) 0.3 %; Eosinophils # (auto) 0.02 K/uL (0-0.50); Eosinophils % (auto) 0.1 %; Hematocrit (blood only) 49.3 % (40.1-51.0); Hemoglobin 16.5 g/dl (14.0-18.0); Immature Granulocytes # (auto) 0.08 K/uL (0.00-0.02); Immature Granulocytes % (auto) 0.4 %; Lymphocytes # (auto) 1.93 K/uL (1.2-3.4); Lymphocytes % (auto) 9.8 %; Mean Corpuscular Hemoglobin 30.3 pg (25.0-34.0); Mean Corpuscular Hgb Conc 33.5 g/dL (32.0-36.0); Mean Corpuscular Volume 90.5 fL (80.0-100.0); Mean Platelet Volume 9.7 fL (9.4-12.4); Monocytes # (auto) 1.62 K/uL (0.24-0.82); Monocytes % (auto) 8.2 %; Neutrophils # (auto) 16.07 K/uL (1.4-6.5); Neutrophils % (auto) 81.2 %; Platelet Count 241 K/uL (130-400); RDW Coefficient of Variation 12.9 % (11.5-14.5); RDW Standard Deviation 42.1 fL (36.4-46.3); Red Blood Count 5.45 M/uL (4.63-6.08); White Blood Count 19.77 K/ul (4.8-10.8)
[2022-03-25 06:25] LABS: BUN Creatinine Ratio 16.4 (10-20); Calcium 7.7 mg/dl (8.5-10.1); Est GFR (African American) 117.7 ml/min; Est GFR (Non-African American) 101.5 ml/min; Magnesium 1.7 mg/dl (1.7-2.4); Phosphorus 2.1 mg/dl (2.5-4.9); Potassium 3.3 mmol/L (3.5-5.1)
[2022-03-25] MEDS ORDERED: POTASSIUM CHLORIDE CRTAB 20 MEQ TABCR PO ONE (07:49)
[2022-03-25] MEDS: ENOXAPARIN INJ 40 MG/0.4 ML SYR SQ SCH (08:24)
[2022-03-25] MEDS: lisinopril 10 MG TAB PO SCH (08:24)
[2022-03-25] MEDS: POT PHOSPHATE MONOBASIC W/ SOD TAB PO SCH ×2 (09:15→12:14)
--- NOTE | 2022-03-25 17:51 | Discharge Summary ---
Date of Service March 25, 2022 Admission HPI Per Admitting Provider This is a 57-year-old male with past medical history significant for hyperlipidemia, prediabetes, hypertension, presents with abdominal pain. The patient about 6-7years ago had diverticulitis and had bowel surgery at that time. He thought the pain could be from the diverticulitis. He also had daily three episodes of diarrhea. The pain started since morning. Recently he was also camping and drinking water from the spring water. States his brother also with similar symptoms. Has chills, no fever, some nausea, no vomiting. Stool is dark color. Normal bladder movements. No chest pain, no shortness of breath, no headache, no blurred visions, no earache, no runny nose, no sore throat, no cough, no difficulty swallowing. Appetite is down since the last few days. Currently resting comfortably and hemodynamically stable. Admission Exam Per Admitting Provider GENERAL: The patient is of moderate build, not in acute distress. VITAL SIGNS: Temperature 36.7, pulse 72, respiratory rate 16, blood pressure 153/100, oxygen 96% on room air. HEENT: Pupils equal, round and reactive to light. Oral mucosa dry. NECK: No JVD, no neck masses. CARDIOVASCULAR: S1 and S2 heard. Murmur in mitral region. Regular rate and rhythm. RESPIRATORY SYSTEM: Normal AP diameter. No accessory muscle use. No wheezing, no crackles. ABDOMEN: Soft, bowel sounds present. Mild discomfort. No guarding. No rigidity. CENTRAL NERVOUS SYSTEM: Cranial nerves II-XII grossly intact, nonfocal. EXTREMITIES: No edema, no erythema. Principal Diagnosis Enterocolitis, suspected viral Discharge Exam General: Lying comfortably in bed, not in distress, on room air HEENT: EOMI, LEIGH ANN, MMM Chest: Clear breath sounds bilaterally, no wheezes or crackles CVS: Regular rate and rhythm, normal heart sounds, no murmur Abdomen: Soft, non tender, not distended, normal bowel sounds Neuro: Awake, alert, oriented, conversing well, non focal Extremities: No cyanosis, clubbing or edema Discharge Data Allergies Allergy/AdvReac Type Severity Reaction Status Date / Time No Known Allergies Allergy Unverified 03/23/22 00:51 Consultations 03/23/22 00:14 ED Decision to Admit Stat Ordered Studies 03/22/22 22:21 CT Abd and Pelvis [CT abd pelvis wo con] Stat Laboratory Results WBC 19.77 K/ul (4.8-10.8) H 03/25/22 05:42 RBC 5.45 M/uL (4.63-6.08) 03/25/22 05:42 Hgb 16.5 g/dl (14.0-18.0) 03/25/22 05:42 Hct 49.3 % (40.1-51.0) 03/25/22 05:42 MCV 90.5 fL (80.0-100.0) 03/25/22 05:42 MCH 30.3 pg (25.0-34.0) 03/25/22 05:42 MCHC 33.5 g/dL (32.0-36.0) 03/25/22 05:42 RDW Std Deviation 42.1 fL (36.4-46.3) 03/25/22 05:42 RDW Coeff of Jc 12.9 % (11.5-14.5) 03/25/22 05:42 Plt Count 241 K/uL (130-400) 03/25/22 05:42 MPV 9.7 fL (9.4-12.4) 03/25/22 05:42 Immature Gran % (Auto) 0.4 % 03/25/22 05:42 Neut % (Auto) 81.2 % 03/25/22 05:42 Lymph % (Auto) 9.8 % 03/25/22 05:42 [place] % (Auto) 8.2 % 03/25/22 05:42 Eos % (Auto) 0.1 % 03/25/22 05:42 Baso % (Auto) 0.3 % 03/25/22 05:42 Neut # (Auto) 16.07 K/uL (1.4-6.5) H 03/25/22 05:42 Lymph # (Auto) 1.93 K/uL (1.2-3.4) 03/25/22 05:42 [place] # (Auto) 1.62 K/uL (0.24-0.82) H 03/25/22 05:42 Eos # (Auto) 0.02 K/uL (0-0.50) 03/25/22 05:42 Baso # (Auto) 0.05 K/uL (0-0.2) 03/25/22 05:42 Immature Gran # (Auto) 0.08 K/uL (0.00-0.02) H 03/25/22 05:42 Sodium 134 mmol/L (136-145) L 03/25/22 05:42 Potassium 3.3 mmol/L (3.5-5.1) L 03/25/22 05:42 Chloride 102 mmol/L (98-107) 03/25/22 05:42 Carbon Dioxide 25 mmol/L (21-32) 03/25/22 05:42 Anion Gap 7 (3-11) 03/25/22 05:42 BUN 12 mg/dl (6-23) 03/25/22 05:42 Creatinine 0.73 mg/dl (0.6-1.4) 03/25/22 05:42 Est Cr Clr Drug Dosing 109.0 ml/min 03/25/22 05:42 Est GFR ( Amer) 117.7 ml/min 03/25/22 05:42 Est GFR (Non-Af Amer) 101.5 ml/min 03/25/22 05:42 BUN/Creatinine Ratio 16.4 (10-20) 03/25/22 05:42 Glucose 143 mg/dl (70-99(Fasting)) H 03/25/22 05:42 Estimat Average Glucose 128 mg/dl 03/23/22 07:02 Hemoglobin A1c 6.1 % (4.5-5.6) H 03/23/22 07:02 Calcium 7.7 mg/dl (8.5-10.1) L 03/25/22 05:42 Phosphorus 2.1 mg/dl (2.5-4.9) L 03/25/22 05:42 Magnesium 1.7 mg/dl (1.7-2.4) 03/25/22 05:42 Total Bilirubin 0.5 mg/dl (0.2-1.0) 03/22/22 21:31 AST 23 U/L (13-39) 03/22/22 21:31 ALT 24 U/L (7-52) 03/22/22 21:31 Alkaline Phosphatase 108 U/L (34-104) H 03/22/22 21:31 Troponin I High Sens 40.3 pg/ml (0-20) H 03/23/22 18:41 Total Protein 7.8 gm/dl (6.0-8.3) 03/22/22 21:31 Albumin 4.5 gm/dl (3.4-5.0) 03/22/22 21:31 Globulin 3.3 gm/dl (2.5-4.0) 03/22/22 21:31 Albumin/Globulin Ratio 1.4 (0.9-2) 03/22/22 21:31 Lipase 59 U/L (11-82) 03/22/22 21:31 Stl C. cayetanensis PCR Not Detected (NotDetected) 03/23/22 00:45 Stool Rotavirus A PCR Not Detected (NotDetected) 03/23/22 00:45 Stl Adenov F 40/41 PCR Not Detected (NotDetected) 03/23/22 00:45 Stool Astrovirus (PCR) Not Detected (NotDetected) 03/23/22 00:45 Stool Campylobacter PCR Not Detected (NotDetected) 03/23/22 00:45 Stl C.difficile Tox A&B Negative Cdiff Toxin (Negative) 03/23/22 00:45 Stl C. diff Tox A/B PCR C.diff Gene Detected (NotDetected) A 03/23/22 00:45 Stool Cryptosporidium PCR Not Detected (NotDetected) 03/23/22 00:45 Stl E.coli Shiga Tox PCR Not Detected (NotDetected) 03/23/22 00:45 Stl Enterotoxigenic E PCR Not Detected (NotDetected) 03/23/22 00:45 Stool EPEC (PCR) Not Detected (NotDetected) 03/23/22 00:45 Stool EAEC (PCR) Not Detected (NotDetected) 03/23/22 00:45 Stl E. histolytica PCR Not Detected (NotDetected) 03/23/22 00:45 Stool Giardia Lamblia PCR Not Detected (NotDetected) 03/23/22 00:45 Stool Salmonella PCR Not Detected (NotDetected) 03/23/22 00:45 Stool Sapovirus (PCR) Not Detected (NotDetected) 03/23/22 00:45 Stl P. shigelloides PCR Not Detected (NotDetected) 03/23/22 00:45 Stl Shigella/EIEC PCR Not Detected (NotDetected) 03/23/22 00:45 St Y.enterocolitica PCR Not Detected (NotDetected) 03/23/22 00:45 Stool Vibrio (PCR) Not Detected (NotDetected) 03/23/22 00:45 Stl Vibrio cholerae PCR Not Detected (NotDetected) 03/23/22 00:45 Stl Norovirus GI/GII PCR Not Detected (NotDetected) 03/23/22 00:45 SARS-CoV-2, RNA, NAAT NEGATIVE (NEGATIVE) 03/23/22 00:35 Impressions Abdomen/Pelvis CT 03/22/22 22:21 CT SCAN OF THE ABDOMEN AND PELVIS WITHOUT IV CONTRAST CLINICAL HISTORY: Generalized abdominal pain. Leukocytosis. Diarrhea. COMPARISON STUDY: No priors. TECHNIQUE: CT scan of the abdomen and pelvis is performed from the lung bases to the proximal femora. Images are reviewed in the axial, sagittal, and coronal planes. IV contrast was not administered for this examination. Note that the examination is suboptimal without oral and IV contrast. A dose lowering technique was utilized adhering to the principles of ALARA. CT DOSE: 314.99 mGy.cm FINDINGS: Lung bases: The heart is normal in size and without pericardial effusion. There are coronary artery calcifications. The lung bases are clear noting dependent scarring/atelectasis. Liver: The unenhanced liver is normal in size, contour, and attenuation. There is no intrahepatic biliary ductal dilatation. Gallbladder: Unremarkable. Spleen: Normal in size and attenuation. Pancreas: Unremarkable. Adrenal glands: Unremarkable. Kidneys: The unenhanced kidneys are normal in size and without hydronephrosis. There is a 2 mm nonobstructing right renal calculus. No left renal calculi are identified. There is no evidence of contour deforming renal mass lesion. Abdominal vasculature: The abdominal aorta is normal in course and caliber noting moderate to advanced atherosclerotic calcification. Bowel: There is postoperative change from sigmoid colon resection with colocolonic anastomosis. Liquid stool is seen throughout the colon. There are also mildly distended and fluid-filled loops of small bowel. No high-grade obstruction is seen. There are thick-walled loops of small bowel in the left upper quadrant with mild surrounding infiltration. There is mild diverticulosis of the remaining left colon without CT evidence of acute diverticulitis. The appendix is well-visualized and normal. Peritoneum: There is no intraperitoneal free air or abdominal ascites. There is a fat-containing umbilical hernia. Lymphadenopathy: None. Pelvic viscera: The prostate gland is enlarged and heterogeneous noting median lobe hypertrophy. The bladder wall appears mildly thickened and trabeculated suggesting chronic outlet obstruction. There is fluid or possibly the right testis located in the right inguinal canal on image #[id number]. Skeletal structures: The skeletal structures appear osteopenic. There is moderate lumbosacral spondylosis. No lytic or blastic lesions are seen. IMPRESSION: 1. There are mildly distended and fluid-filled loops of small bowel, as well as liquid stool seen throughout the colon. Additionally, there are mildly thick- walled loops of small bowel in the left upper quadrant with surrounding infiltration. The appearance suggests a nonspecific enterocolitis/diarrheal illness. Clinical correlation will be required. 2. There is no evidence of high-grade bowel obstruction. No intraperitoneal free air is identified. 3. Right-sided nephrolithiasis. 4. There is fluid versus the right testis identified in the right inguinal canal. Clinical correlation will be required. 5. Additional findings as above. ACT 112: Negative or not required by law. Electronically signed by: Eren Fallon M.D. 03/23/2022 6:43 AM Hospital Course (1) Enterocolitis: (2) Leukocytosis: (3) Elevated troponin: Plan 57 year old male who presented to the ED 03/22 with diarrhea and abdominal pain. CT A/P shows non specific enterocolitis. Stool studies negative except for C diff gene positive, toxin negative. Started on oral vanc on admission and managed conservatively with improvement in symptoms. Tolerating oral intake without issues. Abdominal pain and diarrhea resolved. WBC improving. Comfortable and stable for discharged. Conitnuing oral vanco for one more week. Recommended repeat CBC in 5 days and follow up with PCP. Recommend follow up with GI if symptoms persist or worsen. CT A/P 03/22 1. There are mildly distended and fluid-filled loops of small bowel, as well as liquid stool seen throughout the colon. Additionally, there are mildly thick- walled loops of small bowel in the left upper quadrant with surrounding infiltration. The appearance suggests a nonspecific enterocolitis/diarrheal illness. Clinical correlation will be required. 2. There is no evidence of high-grade bowel obstruction. No intraperitoneal free air is identified. 3. Right-sided nephrolithiasis. 4. There is fluid versus the right testis identified in the right inguinal canal. Clinical correlation will be required. Enterocolitis- CT with non specific enterocolitis/diarrheal illness but no obstruction. Stool biofire negative except for C diff gene but no toxin. Enterocolitis ?viral vs from C diff. Improved with conservative management and now tolerating regular diet without any issues. Empiric vanco was started on admission and will be continued for a week. Leucocytosis- unclear cause ?from above but improving- recommend repeat CBC in 5 days and follow up with PCP Hyponatremia- improving to 134. HTN- on lisinopril Elevated trop- no CP. serial trop minimally elevated but flat trend. No need for further trending Hypomagnesemia- resolved Hypophosphatemia- repleted. Total Time Total Time Spent Total Time Spent (In Minutes): 40 Discharge Plan Discharge Items Patient Disposition: Home - Self-Care Reason For Visit: ABD PAIN Discharge Diagnosis: Enterocolitis, possibly viral Activity: Resume your previous activity Non-emergency contact: Primary Care Provider Call non-emergency contact if: you have any medication questions, your symptoms worsen, your pain is concerning for you and you have a fever Follow-up/Referrals: PCP,NO [Primary Care Provider] - Diet: Regular Addtl Attending Provider Instructions: Continue oral vancomycin for 1 more week Recommend repeat blood work (CBC with differentials) in 5 days to monitor white count If fever, chills, vomiting or worsening abdominal pain or diarrhea, please come back to the emergency Pending Studies at Discharge: No Stand-Alone Forms: My [facility] [employer], Work/School Release, Smoking Cessation Medications and DC Order Prescriptions: New vancomycin 125 mg capsule 125 mg PO Q6H 7 Days Qty: 28 0RF Continued bismuth subsalicylate [Pepto-Bismol] 262 mg/15 mL Suspension 524 mg PO QID PRN (Reason: gi-upset) lisinopril 10 mg tablet 10 mg PO DAILY Discharge Orders: Discharge Order (Routine); Ordered 03/25/22 Ordered By: Jian Weiss/Other Patient Handouts: A1C Admission Data Admit Date/Time: 03/23/22 02:23 Attending Provider: Jain Porter Admit Provider: Sen Barrett Primary Care Provider: PCP,NO Other Providers: Sen Barrett Other Interventions: Discharge Summary Assessment (RN) Last Done: 03/25/22 12:34
== END 2022-03-25 13:10 | disposition home or self-care (01) | DRG 392 ==
LOC: ED 20:54 → 2W 03-23 02:23